=== PATIENT | male | born 1960 | race Caucasian/White ===

== ENCOUNTER 2020-06-20 16:59 | Emergency (ER) | payer OTHER ==
[~2020-06-20 16:59] MED LIST: CRESTOR5 MG PO; LISINOPRIL-HCT1 EAC2 PO; PERCOCET 5-3251 EACH PO; PROAIR HFA8.5 GM INH; PULMICORT FLEX90 MCG INH; REVATIO 20MG TA20 MG PO; STOOL SOFTENER100 MG PO; SYNTHROID150 MCG PO; TOPROL XL 50 MG50 MG PO; TRICOR145 MG PO; VOLTAREN **OUT75 MG PO; XARELTO10 MG PO
[2020-06-20] MEDS ORDERED: NORCO 5-325 TA1 EACH PO (20:02)
[2020-06-20] MEDS ORDERED: ROBAXIN500 MG PO (20:02)
== END 2020-06-20 20:22 | disposition home or self-care (01) ==
LOC: FER 16:59
DX: M25.511 Pain in right shoulder (principal); I10 Essential (primary) hypertension; J45.909 Unspecified asthma, uncomplicated
CPT/HCPCS: 73030; 96372; J1040; J1885